=== PATIENT | female | born 2005 | race Asian ===

== ENCOUNTER 2024-05-31 00:11 | Emergency (ER) | payer OTHER, SELFPAY ==
[2024-05-31 00:13] VITALS: BP 121/72; PULSE 97; RESP 18; TEMP 36.9; O2SAT 97; BMI 30.7
[2024-05-31 00:15] VITALS: BP 125/76; PULSE 85; RESP 18; TEMP 36.9; O2SAT 96; O2SAT 98
[2024-05-31] MEDS: Benzonatate 100 MG Capsule 200 MG PO (00:30)
[2024-05-31] MEDS: dexAMETHasone 10 MG/ML Vial PO.IVFORM (00:31)
[2024-05-31] MEDS: Ipratropium/Albuterol Sulfate 3 ML AMPUL.NEB INHALATION (00:38)
[2024-05-31 00:39] VITALS: PULSE 86; RESP 22
[2024-05-31 02:00] VITALS: BP 107/67; PULSE 100; RESP 18; TEMP 37.1; O2SAT 98
== END 2024-05-31 02:10 | disposition home or self-care (01) ==
PROVIDERS: Emergency Provider Emergency Medicine; Visit Provider Emergency Medicine
DX: J06.9 Acute upper respiratory infection, unspecified (principal); R06.2 Wheezing; R06.02 Shortness of breath; R05.9 Cough, unspecified
CPT/HCPCS: 71046; 94640; 99283